=== PATIENT | female | born 1995 | race Caucasian/White ===

== ENCOUNTER 2017-03-20 10:35 | Emergency (ER) | payer BC ==
[2017-03-20 11:22] VITALS: BP 115/67
[2017-03-20 11:36] LABS: CHLORIDE,CL 108 mmol/L (98-110); SODIUM,NA 137 mmol/L (136-146)
--- NOTE | 2017-03-20 12:02 | EDM.PDOC ---
ED HPI GENERAL MEDICAL PROBLEM - General Chief Complaint: ENT Problem Stated Complaint: nose bleed Time Seen by Provider: 03/20/17 11:58 Source of Information: Reports: Patient - History of Present Illness INITIAL COMMENTS - FREE TEXT/NARRATIVE: HISTORY AND PHYSICAL: History of present illness: Patient is 15 weeks with IUP presents with epistaxis that began shortly prior to arrival, she is quite emotional and worked up due to the bloody nose, right and there clearly was bleeding other however there is no active bleed on arrival there is copious blood in the nares itself on arrival, the patient states she swallowed a large clot which concerned her. Again she is very tearful and emotional her blood pressure is elevated 180/113 on arrival, after reassurance and placing a cold pack on her neck with some time blood pressure did come down to 115/67 on recheck after approximately 30 minutes patient is much more calm bleeding has resolved no specific treatment required No fever nausea vomiting chills sweats no chest pain shortness breath headache dizziness palpitation no bowel or urine symptoms No vaginal symptoms such as bleeding discharge or dysuria no low back pain Review of systems: As per history of present illness and below otherwise all systems reviewed and negative. Past medical history: As per history of present illness and as reviewed below otherwise noncontributory. Surgical history: As per history of present illness and as reviewed below otherwise noncontributory. Social history: No reported history of drug or alcohol abuse. Family history: As per history of present illness and as reviewed below otherwise noncontributory. Physical exam: HEENT: Atraumatic, normocephalic, pupils reactive, negative for conjunctival pallor or scleral icterus, mucous membranes moist, throat clear, neck supple, nontender, trachea midline. Right near did had copious blood the bleeding seemed to originate very anterior consistent with picking nose however nothing for cauterization at this time no active bleeding no blood in posterior oropharynx, no clots appreciated nares are clear at this time on discharge with no continued bleeding Lungs: Clear to auscultation, breath sounds equal bilaterally, chest nontender. Heart: S1S2, regular, negative for clicks, rubs, or JVD. Abdomen: Soft, nondistended, nontender. Negative for masses or hepatosplenomegaly. Negative for costovertebral tenderness. Pelvis: Stable nontender. Genitourinary: Deferred. Rectal: Deferred. Extremities: Atraumatic, negative for cords or calf pain. Neurovascular unremarkable. Neuro: Awake, alert, oriented. Cranial nerves II through XII unremarkable. Cerebellum unremarkable. Motor and sensory unremarkable throughout. Exam nonfocal. Diagnostics: []Lab as below CBC, CMP, UA Therapeutics: []Ice pack Impression: []Epistaxis resolved Definitive disposition and diagnosis as appropriate pending reevaluation and review of above. headache Pain Score (Numeric/FACES): 5 - Related Data Allergies Allergy/AdvReac Type Severity Reaction Status Date / Time No Known Allergies Allergy Verified 09/16/15 12:15 Home Meds: Home Meds . [No Known Home Meds] 12/09/14 [History] Past Medical History - Past Health History Medical/Surgical History: Denies Medical/Surgical History - Infectious Disease History Infectious Disease History: Reports: None Social & Family History - Family History Family Medical History: Noncontributory - Tobacco Use Smoking Status *Q: Current Every Day Smoker Years of Tobacco use: 9 Packs/Tins Daily: 0.5 Used Tobacco, but Quit: No Second Hand Smoke Exposure: No - Alcohol Use Days Per Week of Alcohol Use: 1 Number of Drinks Per Day: 6 Total Drinks Per Week: 6 - Recreational Drug Use Recreational Drug Use: No Drug Use in Last 12 Months: No Recreational Drug Type: Reports: Cocaine, Marijuana/Hashish, Oxycodone Recreational Drug Use Frequency: Not Used In Over 1 Year ED ROS GENERAL - Review of Systems Review Of Systems: ROS reveals no pertinent complaints other than HPI. ED EXAM, GENERAL - Physical Exam Exam: See Below Course - Vital Signs Last Recorded V/S: Last Vital Signs Temp 36.8 C 03/20/17 11:21 Pulse 97 03/20/17 11:21 Resp 16 03/20/17 11:21 BP 115/67 03/20/17 11:21 Pulse Ox 95 03/20/17 11:21 - Orders/Labs/Meds Orders: Active Orders 24 hr Category Date Time Status UA W/MICROSCOPIC [URIN] Stat Lab 03/20/17 11:40 Results Labs: Laboratory Tests 03/20/17 03/20/17 03/20/17 Range/Units 11:02 11:02 11:02 WBC 13.02 H (4.0-11.0) K/uL RBC 4.66 (4.30-5.90) M/uL Hgb 14.3 (12.0-16.0) g/dL Hct 41.7 (36.0-46.0) % MCV 89.5 (80.0-98.0) fL MCH 30.7 (27.0-32.0) pg MCHC 34.3 (31.0-37.0) g/dL RDW Std Deviation 45.8 (28.0-62.0) fl RDW Coeff of Joshua 14 (11.0-15.0) % Plt Count 217 (150-400) K/uL MPV 10.80 (7.40-12.00) fL Neut % (Auto) 80.5 H (48.0-80.0) % Lymph % (Auto) 13.1 L (16.0-40.0) % [place] % (Auto) 5.5 (0.0-15.0) % Eos % (Auto) 0.7 (0.0-7.0) % Baso % (Auto) 0.2 (0.0-1.5) % Neut # (Auto) 10.5 H (1.4-5.7) K/uL Lymph # (Auto) 1.7 (0.6-2.4) K/uL [place] # (Auto) 0.7 (0.0-0.8) K/uL Eos # (Auto) 0.1 (0.0-0.7) K/uL Baso # (Auto) 0.0 (0.0-0.1) K/uL Nucleated RBC % 0.0 /100WBC Nucleated RBCs # 0 K/uL INR 1.01 (0.86-1.11) Sodium 137 (136-146) mmol/L Potassium 3.6 (3.5-5.1) mmol/L Chloride 108 (98-110) mmol/L Carbon Dioxide 18 L (21-31) mmol/L BUN 8 (6.0-23.0) mg/dL Creatinine 0.6 (0.6-1.5) mg/dL Est Cr Clr Drug Dosing 125.92 mL/min Estimated GFR (MDRD) > 60.0 ml/min Glucose 90 (60-110) mg/dL Calcium 8.8 (8.8-10.8) mg/dL Total Bilirubin 0.3 (0.1-1.5) mg/dL AST 11 (5-40) IU/L ALT 12 (8-54) IU/L Alkaline Phosphatase 64 (40-150) Total Protein 6.6 (6.0-8.0) g/dL Albumin 3.5 (3.5-5.0) g/dL Globulin 3.1 (2.0-3.5) g/dL Albumin/Globulin Ratio 1.1 L (1.3-2.8) Urine Color Urine Appearance Urine pH (5.0-8.0) Ur Specific [place] (1.001-1.035) Urine Protein (NEGATIVE) mg/dL Urine Glucose (UA) (NEGATIVE) mg/dL Urine Ketones (NEGATIVE) mg/dL Urine Occult Blood (NEGATIVE) Urine Nitrite (NEGATIVE) Urine Bilirubin (NEGATIVE) Urine Urobilinogen (<2.0) EU/dL Ur Leukocyte Esterase (NEGATIVE) 03/20/17 Range/Units 11:40 WBC (4.0-11.0) K/uL RBC (4.30-5.90) M/uL Hgb (12.0-16.0) g/dL Hct (36.0-46.0) % MCV (80.0-98.0) fL MCH (27.0-32.0) pg MCHC (31.0-37.0) g/dL RDW Std Deviation (28.0-62.0) fl RDW Coeff of Joshua (11.0-15.0) % Plt Count (150-400) K/uL MPV (7.40-12.00) fL Neut % (Auto) (48.0-80.0) % Lymph % (Auto) (16.0-40.0) % [place] % (Auto) (0.0-15.0) % Eos % (Auto) (0.0-7.0) % Baso % (Auto) (0.0-1.5) % Neut # (Auto) (1.4-5.7) K/uL Lymph # (Auto) (0.6-2.4) K/uL [place] # (Auto) (0.0-0.8) K/uL Eos # (Auto) (0.0-0.7) K/uL Baso # (Auto) (0.0-0.1) K/uL Nucleated RBC % /100WBC Nucleated RBCs # K/uL INR (0.86-1.11) Sodium (136-146) mmol/L Potassium (3.5-5.1) mmol/L Chloride (98-110) mmol/L Carbon Dioxide (21-31) mmol/L BUN (6.0-23.0) mg/dL Creatinine (0.6-1.5) mg/dL Est Cr Clr Drug Dosing mL/min Estimated GFR (MDRD) ml/min Glucose (60-110) mg/dL Calcium (8.8-10.8) mg/dL Total Bilirubin (0.1-1.5) mg/dL AST (5-40) IU/L ALT (8-54) IU/L Alkaline Phosphatase (40-150) Total Protein (6.0-8.0) g/dL Albumin (3.5-5.0) g/dL Globulin (2.0-3.5) g/dL Albumin/Globulin Ratio (1.3-2.8) Urine Color YELLOW Urine Appearance CLOUDY Urine pH 6.0 (5.0-8.0) Ur Specific [place] 1.025 (1.001-1.035) Urine Protein 30 (NEGATIVE) mg/dL Urine Glucose (UA) NEGATIVE (NEGATIVE) mg/dL Urine Ketones TRACE H (NEGATIVE) mg/dL Urine Occult Blood TRACE-INTACT (NEGATIVE) Urine Nitrite NEGATIVE (NEGATIVE) Urine Bilirubin SMALL H (NEGATIVE) Urine Urobilinogen 0.2 (<2.0) EU/dL Ur Leukocyte Esterase NEGATIVE (NEGATIVE) Departure - Departure Time of Disposition: 12:02 Disposition: Home, Self-Care 01 Condition: Good Clinical Impression: Epistaxis - Discharge Information Forms: ED Department Discharge Additional Instructions: Return if symptoms persist or worsen or new concerning symptoms develop Epistaxis returns pinched nose tilted forward place ice pack on back of neck if bleeding does not resolve after 30 minutes return to emergency room Follow-up with OB as scheduled The following information is given to patients seen in the emergency department who are being discharged to home. This information is to outline your options for follow-up care. We provide all patients seen in our emergency department with a follow-up referral. The need for follow-up, as well as the timing and circumstances, are variable depending upon the specifics of your emergency department visit. If you don't have a primary care physician on staff, we will provide you with a referral. We always advise you to contact your personal physician following an emergency department visit to inform them of the circumstance of the visit and for follow-up with them and/or the need for any referrals to a consulting specialist. The emergency department will also refer you to a specialist when appropriate. This referral assures that you have the opportunity for follow-up care with a specialist. All of these measure are taken in an effort to provide you with optimal care, which includes your follow-up. Under all circumstances we always encourage you to contact your private physician who remains a resource for coordinating your care. When calling for follow-up care, please make the office aware that this follow-up is from your recent emergency room visit. If for any reason you are refused follow-up, please contact the [facility] emergency department at and asked to speak to the emergency department charge nurse. - My Orders Last 24 Hours: My Active Orders 03/20/17 11:40 UA W/MICROSCOPIC [URIN] Stat - Assessment/Plan Last 24 Hours: My Active Orders 03/20/17 11:40 UA W/MICROSCOPIC [URIN] Stat
== END 2017-03-20 12:12 | disposition home or self-care (01) ==
LOC: MW.ED 10:35
DX: R04.0 Epistaxis (principal); F17.210 Nicotine dependence, cigarettes, uncomplicated
CPT/HCPCS: 36415; 80053; 81001; 85025; 85610; 99282; 99283

== ENCOUNTER 2017-09-03 08:20 | Inpatient (IN) | payer BC ==
[2017-09-03] MEDS ORDERED: Terbutaline 1 MG/ML SDV SUBCUT PRN (11:58)
[2017-09-03] MEDS ORDERED: Carboprost Tromethamine 250 MCG/1 ML Amp IM PRN (11:58)
[2017-09-03] MEDS ORDERED: Methylergonovine 0.2 MG/1 ML Amp IM PRN (11:58)
[2017-09-03] MEDS ORDERED: Lidocaine 1% 50 ML MDV INJECT PRN (11:58)
[2017-09-03] MEDS ORDERED: Sodium Chloride 0.9% 2.5 ML Syringe FLUSH PRN (11:58)
[2017-09-03] MEDS ORDERED: Misoprostol 200 MCG Tab PO PRN (11:58)
[2017-09-03] MEDS ORDERED: Sodium Chloride 0.9% 10 ML Syringe FLUSH PRN (11:58)
[2017-09-03] MEDS ORDERED: Nalbuphine 10 MG/1 ML Vial IVPUSH PRN (11:58)
[2017-09-03] MEDS ORDERED: Butorphanol 1 MG/ML SDV IVPUSH PRN (11:58)
[2017-09-03] MEDS ORDERED: Water For Irrigation,Sterile 1,000 ML Container IRR PRN (11:58)
[2017-09-03] MEDS ORDERED: Lactated Ringers 1,000 ML IV SCH (12:00)
[2017-09-03] MEDS ORDERED: Oxytocin/0.9 % Sodium Chloride 30 UNIT/500 ML BAG IV SCH ×2 (12:00)
--- NOTE | 2017-09-03 12:04 | PCM.LDHP ---
L&D History of Present Illness - General Date of Service: 09/03/17 Admit Problem/Dx: Patient Status Order with Admit Dx/Problem 09/03/17 08:41 Patient Status [ADT] Routine Admission Diagnosis/Problem Admission Diagnosis/Problem 09/03/17 12:01 21yo EDC 09/12/2017 38 5/7wk, O-, RI, GBS neg. Labor Source of Information: Patient History Limitations: Reports: No Limitations - History of Present Illness Improves with: Reports: None Worsens with: Reports: None Associated Symptoms: Reports: N - Related Data Allergies/Adverse Reactions: Allergies Allergy/AdvReac Type Severity Reaction Status Date / Time No Known Allergies Allergy Verified 09/16/15 12:15 Home Medications: Home Meds . [No Known Home Meds] 12/09/14 [History] Past Medical History - Past Health History Medical/Surgical History: Denies Medical/Surgical History - Infectious Disease History Infectious Disease History: Reports: None Social & Family History - Family History Family Medical History: Noncontributory - Tobacco Use Smoking Status *Q: Current Every Day Smoker Years of Tobacco use: 9 Packs/Tins Daily: 0.5 Used Tobacco, but Quit: No Second Hand Smoke Exposure: No - Alcohol Use Days Per Week of Alcohol Use: 1 Number of Drinks Per Day: 6 Total Drinks Per Week: 6 - Recreational Drug Use Recreational Drug Use: No Drug Use in Last 12 Months: No Recreational Drug Type: Reports: Cocaine, Marijuana/Hashish, Oxycodone Recreational Drug Use Frequency: Not Used In Over 1 Year H&P Review of Systems - Review of Systems: Review Of Systems: See Below General: Reports: No Symptoms HEENT: Reports: No Symptoms Pulmonary: Reports: No Symptoms Cardiovascular: Reports: No Symptoms Gastrointestinal: Reports: No Symptoms Genitourinary: Reports: No Symptoms Musculoskeletal: Reports: No Symptoms Skin: Reports: No Symptoms Psychiatric: Reports: No Symptoms Neurological: Reports: No Symptoms Hematologic/Lymphatic: Reports: No Symptoms Immunologic: Reports: No Symptoms L&D Exam - Exam Exam: See Below - Vital Signs Weight: 98.883 kg - OB Specific Contraction Intensity: Moderate Movement: Active Heart Tones: Present Heart Rate (FHR) Variability: Moderate (6-25 bmp) Presentation: Vertex - Mcgee Score Mcgee Score Cervix Position: Midposition Mcgee Score Consistency: Soft Mcgee Score Effacement: >80% Mcgee Score Dilation: 3-4 cm Mcgee Score 's Station: -2 Mcgee Score Total: 9 - Exam General: Alert, Oriented, Cooperative HEENT: Hearing Intact Lungs: Normal Respiratory Effort GI/Abdominal Exam: Soft, Non-Tender, No Organomegaly (gravid) Rectal Exam: Deferred Genitourinary: Normal external exam, Normal bimanual exam, Cervical dilitation Back Exam: Full Range of Motion Extremities: Normal Range of Motion, Non-Tender, No Pedal Edema, Normal Capillary Refill Skin: Warm, Dry, Intact Neurological: Reflexes Equal Bilateral Psychiatric: Alert, Normal Affect, Normal Mood - Problem List (1) Supervision of normal IUP (intrauterine ) in multigravida SNOMED Code(s): 269300462, 100199042 ICD Code: Z34.80 - ENCOUNTER FOR SUPRVSN OF NORMAL , UNSP TRIMESTER Status: Acute Priority: High Current Visit: Yes Qualifiers: Trimester: third trimester Qualified Code(s): Z34.83 - Encounter for supervision of other normal , third trimester Problem List Initiated/Reviewed/Updated: Yes Orders Last 24hrs: Active Orders 24 hr Category Date Time Status Patient Status [ADT] Routine ADT 09/03/17 08:41 Active Non Stress Test [RC] PER UNIT ROUTINE Care 09/03/17 08:41 Active Up ad Kiki [RC] ASDIRECTED Care 09/03/17 08:41 Active Vaginal Exam [RC] Click to Edit Care 09/03/17 08:41 Active Vital Signs [RC] PER UNIT ROUTINE Care 09/03/17 08:41 Active Resuscitation Status Routine Resus Stat 09/03/17 08:41 Ordered Assessment/Plan Comment:: Labor A: 21yo EDC 09/12/2017 38 5/7wk, O-, RI, GBS neg. Labor P: Admit, pain mngt prn, anticipate
[2017-09-03] MEDS ORDERED: Ampicillin 2 GM in Sodium Chloride 0.9% 100 ML IV ONE (19:00)
[2017-09-03] MEDS ORDERED: Benzocaine/Menthol 20%-0.5% Spray 78 GM Cannister TOP PRN (21:40)
[2017-09-03] MEDS ORDERED: oxyCODONE 5 MG Tab PO PRN (21:40)
[2017-09-03] MEDS ORDERED: Lanolin 100% Cream 7 GM Tube TOP PRN (21:40)
[2017-09-03] MEDS ORDERED: Witch Hazel Medicated Pads 40/Jar TOP PRN (21:40)
[2017-09-03] MEDS ORDERED: Ibuprofen 400 MG Tab PO PRN (21:40)
[2017-09-03] MEDS ORDERED: Acetaminophen 500 MG Tab PO PRN ×2 (21:40)
[2017-09-03] MEDS ORDERED: Docusate Sodium 100 MG Cap PO PRN (21:40)
[2017-09-03] MEDS ORDERED: Bisacodyl 10 MG Supp RECTAL PRN (21:40)
[2017-09-03] MEDS: Ampicillin 1 GM in Sodium Chloride 0.9% 50 ML IV SCH (23:29)
[2017-09-03] MEDS: Ibuprofen 800 MG Tab PO PRN (23:29)
--- NOTE | 2017-09-04 02:50 | OR ---
SURGEON: Iam Rojas MD DATE OF PROCEDURE: PROCEDURE IN DETAIL: She is 21 years old. She is para 3-0-0-3. She is term. She is 39+ weeks. She is admitted in active labor with spontaneous rupture of membrane early today. Clear fluid that was confirmed. At the time of admission, she was dilated 3 to 4 cm. She had epidural anesthesia for labor analgesia. She required low-dose Pitocin to augment her labor. The patient once she hit 6 to 7 cm, she rather progressed rapidly and she had a precipitous labor attended by the labor nurses. Male fetus was delivered. score 8 and 9 without any problem. By the time I came, the fetus was already out. Then, the cord blood was obtained and the placenta is delivered by me without any problem. Inspection of the pelvis, there was no perineal or labial laceration. ESTIMATED BLOOD LOSS: 250 to 300 mL. COMPLICATIONS: There was no complication. FINDINGS: heart rate was category 1 through the entire process of labor. There is no complication or problem through the process of labor and delivery. JAAVD / PADMINI /[id number]
[2017-09-04] MEDS: Ampicillin 1 GM in Sodium Chloride 0.9% 50 ML IV SCH ×3 (04:31→19:05)
--- NOTE | 2017-09-04 09:06 | PCM.PNPP ---
- General Info Date of Service: 09/04/17 Functional Status: Reports: Pain Controlled - Review of Systems General: Reports: No Symptoms HEENT: Reports: No Symptoms Pulmonary: Reports: No Symptoms Cardiovascular: Reports: No Symptoms Gastrointestinal: Reports: No Symptoms Genitourinary: Reports: No Symptoms Musculoskeletal: Reports: No Symptoms Skin: Reports: No Symptoms Neurological: Reports: No Symptoms Psychiatric: Reports: No Symptoms - General Info Date of Service: 09/04/17 - Patient Data Vital Signs - Most Recent: Last Vital Signs Temp 37.1 C 09/04/17 07:45 Pulse 84 09/04/17 07:45 Resp 16 09/04/17 07:45 BP 112/63 09/04/17 07:45 Pulse Ox 97 09/04/17 07:45 Weight - Most Recent: 98.883 kg Lab Results - Last 24 Hours: Laboratory Results - last 24 hr 09/03/17 09/03/17 09/04/17 Range/Units 12:15 12:15 04:07 WBC 10.40 (4.0-11.0) K/uL RBC 3.94 L (4.30-5.90) M/uL Hgb 11.8 L 11.2 L (12.0-16.0) g/dL Hct 35.1 L 33.7 L (36.0-46.0) % MCV 89.1 (80.0-98.0) fL MCH 29.9 (27.0-32.0) pg MCHC 33.6 (31.0-37.0) g/dL RDW Std Deviation 48.0 (28.0-62.0) fl RDW Coeff of Joshua 15 (11.0-15.0) % Plt Count 204 (150-400) K/uL MPV 10.20 (7.40-12.00) fL Nucleated RBC % 0.0 /100WBC Nucleated RBCs # 0 K/uL Blood Type O NEGATIVE Antibody Screen NEGATIVE Med Orders - Current: Current Medications Acetaminophen (Tylenol Extra Strength) 500 mg PO Q4H PRN PRN Reason: Pain Acetaminophen (Tylenol Extra Strength) 1,000 mg PO Q4H PRN PRN Reason: Pain Last Admin: 09/04/17 04:42 Dose: 1,000 mg Benzocaine/Menthol (Dermoplast Pain Relief 20%-0.5% [place]) 0 gm TOP ASDIRECTED PRN PRN Reason: Perineal Comfort Measure Bisacodyl (Dulcolax) 10 mg RECTAL .ONCE PRN PRN Reason: Constipation Butorphanol Tartrate (Stadol) 1 mg IVPUSH Q1H PRN PRN Reason: Pain Last Admin: 09/03/17 20:30 Dose: 1 mg Carboprost Tromethamine (Hemabate Ds) 250 mcg IM ASDIRECTED PRN PRN Reason: Post Hemorrhage Docusate Sodium (Colace) 100 mg PO BID PRN PRN Reason: Constipation Emollient Ointment (Lansinoh Hpa) 0 gm TOP ASDIRECTED PRN PRN Reason: Sore Nipples Lactated Ringer's (Ringers, Lactated) 1,000 mls @ 150 mls/hr IV ASDIRECTED ALFREDITO Oxytocin/Sodium Chloride (Oxytocin 30 Unit/500 Ml-Ns) 30 unit in 500 mls @ 999 mls/hr IV ASDIRECTED ALFREDITO Oxytocin/Sodium Chloride (Oxytocin 30 Unit/500 Ml-Ns) 30 unit in 500 mls @ 2 mls/hr IV TITRATE ALFREDITO; 2 MUNITS/MIN PRN Reason: Protocol Last Titration: 09/03/17 21:29 Dose: 999 mls/hr Ampicillin Sodium 1 gm/ Sodium (Chloride) 50 mls @ 100 mls/hr IV Q4H ALFREDITO Last Admin: 09/04/17 07:07 Dose: Not Given Ibuprofen (Motrin) 400 mg PO Q4H PRN PRN Reason: Pain Ibuprofen (Motrin) 800 mg PO Q6H PRN PRN Reason: Pain Last Admin: 09/03/17 23:29 Dose: 800 mg Lidocaine HCl (Xylocaine 1%) 50 ml INJECT .ONCE PRN PRN Reason: Laceration repair Methylergonovine Maleate (Methergine) 0.2 mg IM ASDIRECTED PRN PRN Reason: Post Hemorrhage Misoprostol (Cytotec) 200 mcg PO .ONCE PRN PRN Reason: Post Hemorrhage Nalbuphine HCl (Nubain) 10 mg IVPUSH Q1H PRN PRN Reason: Pain (severe 7-10) Oxycodone HCl (Oxycodone) 5 mg PO Q2H PRN PRN Reason: Pain Sodium Chloride (Saline Flush) 10 ml FLUSH ASDIRECTED PRN PRN Reason: Keep Vein Open Sodium Chloride (Saline Flush) 2.5 ml FLUSH ASDIRECTED PRN PRN Reason: Keep Vein Open Sterile Water (Sterile Water For Irrigation) 1,000 ml IRR ASDIRECTED PRN PRN Reason: delivery Terbutaline Sulfate (Brethine) 0.25 mg SUBCUT ASDIRECTED PRN PRN Reason: Tacysystole [place] Christen (Tucks) 1 pad TOP ASDIRECTED PRN PRN Reason: comfort care Discontinued Medications Ampicillin Sodium 2 gm/ Sodium (Chloride) 100 mls @ 200 mls/hr IV ONETIME ONE Stop: 09/03/17 19:29 Last Admin: 09/03/17 18:35 Dose: 200 mls/hr - Infant Interaction Infant Disposition, : in Room with Family Interaction: Holding Infant Infant Feeding: Attempted ; Nursed Fair/Poor Support Person: - Recovery Exam Fundal Tone: Firm Fundal Level: At Umbilicus Fundal Placement: Midline Lochia Amount: Scant, Small Lochia Color: Rubra/Red Perineum Description: Intact, Minimal Bruising/Swelling Episiotomy/Laceration: None Bladder Status: Voiding - Exam General: Alert, Oriented HEENT: Pupils Equal Neck: Supple Lungs: Clear to Auscultation, Normal Respiratory Effort Cardiovascular: Regular Rate, Regular Rhythm GI/Abdominal Exam: Normal Bowel Sounds, Soft, Non-Tender, No Organomegaly, No Distention, No Abnormal Bruit, No Mass, Pelvis Stable Extremities: Normal Inspection, Normal Range of Motion, Non-Tender, No Pedal Edema, Normal Capillary Refill Skin: Warm, Dry, Intact Wound/Incisions: Healing Well Neurological: No New Focal Deficit Psy/Mental Status: Alert, Normal Affect, Normal Mood - Problem List Review Problem List Initiated/Reviewed/Updated: Yes - My Orders Last 24 Hours: My Active Orders 09/03/17 11:58 Butorphanol [Stadol] 1 mg IVPUSH Q1H PRN Carboprost Tromethamine [Hemabate DS] 250 mcg IM ASDIRECTED PRN Lidocaine 1% [Xylocaine 1%] 50 ml INJECT .ONCE PRN Methylergonovine [Methergine] 0.2 mg IM ASDIRECTED PRN Misoprostol [Cytotec] 200 mcg PO .ONCE PRN Nalbuphine [Nubain] 10 mg IVPUSH Q1H PRN Sodium Chloride 0.9% [Saline Flush] 10 ml FLUSH ASDIRECTED PRN Sodium Chloride 0.9% [Saline Flush] 2.5 ml FLUSH ASDIRECTED PRN Terbutaline [Brethine] 0.25 mg SUBCUT ASDIRECTED PRN Water For Irrigation,Sterile [Sterile Water for Irrigation] 1,000 ml IRR ASDIRECTED PRN Resuscitation Status Routine 09/03/17 11:59 May Shower [RC] ASDIRECTED Up ad Kiki [RC] ASDIRECTED Scalp Electrode [WOMSER] Per Unit Routine Peripheral IV Insertion Adult [OM.PC] Routine 09/03/17 12:00 Lactated Ringers [Ringers, Lactated] 1,000 ml IV ASDIRECTED Oxytocin/0.9 % Sodium Chloride [Oxytocin 30 Unit/500 ML-NS] 30 unit in 500 ml IV ASDIRECTED Oxytocin/0.9 % Sodium Chloride [Oxytocin 30 Unit/500 ML-NS] 30 unit in 500 ml IV TITRATE Medication Administration Instruction [OM.PC] Q3H 09/03/17 21:40 Patient Status [ADT] Routine Vital Signs [RC] PER UNIT ROUTINE Acetaminophen [Tylenol Extra Strength] 1,000 mg PO Q4H PRN Acetaminophen [Tylenol Extra Strength] 500 mg PO Q4H PRN Benzocaine/Menthol [Dermoplast Pain Relief 20%-0.5% [place]] 0 gm TOP ASDIRECTED PRN Bisacodyl [Dulcolax] 10 mg RECTAL .ONCE PRN Docusate Sodium [Colace] 100 mg PO BID PRN Ibuprofen [Motrin] 400 mg PO Q4H PRN Ibuprofen [Motrin] 800 mg PO Q6H PRN Lanolin [Lansinoh HPA] See Dose Instructions TOP ASDIRECTED PRN Witch Christen [Tucks] 1 pad TOP ASDIRECTED PRN oxyCODONE 5 mg PO Q2H PRN Assess Lochia [WOMSER] Per Unit Routine Assess Uterine Involution [WOMSER] Per Unit Routine Peripheral IV Discontinue [OM.PC] Routine 09/03/17 23:00 Ampicillin 1 gm Sodium Chloride 0.9% [Normal Saline] 50 ml IV Q4H - Assessment Assessment:: status post normalspontaneous vaginal delivery doingwell without planning Center home in a.m. - Plan Plan:: Labor A: 21yo EDC 09/12/2017 38 5/7wk, O-, RI, GBS neg. Labor P: Admit, pain mngt prn, anticipate
[2017-09-04] MEDS: Ibuprofen 800 MG Tab PO PRN ×2 (09:26→18:07)
[2017-09-04 20:39] VITALS: BP 134/86
== END 2017-09-04 23:59 | disposition home or self-care (01) | DRG 560 ==
LOC: MW.OBCHECK 08:20 → MW.OB 08:41 → MW.OBCHECK 11:59 → MW.OB 11:59 → OBSVTOIN 21:27 → MW.OB 09-04 01:12
PROVIDERS: ADMIT Obstetrics & Gynecology; ATTEND Advanced Practice Midwife
PROC: 10E0XZZ Delivery of Products of Conception, External Approach (ICD-10-PCS; principal; 2017-09-03)
DX: O42.02 Full-term premature rupture of membranes, onset of labor within 24 hours of rupture (principal); Z3A.39 39 weeks gestation of pregnancy; Z37.0 Single live birth
CPT/HCPCS: 36415; 59025; 59409; 85014; 85018; 85027; 86850; 86900; 86901; A9270-GY; J0290; J0595; J2590; J7030

== ENCOUNTER 2020-04-20 10:05 | Observation (INO) | payer OTHER ==
[2020-04-20] MEDS ORDERED: Lactated Ringers 1,000 ML IV SCH (12:00)
--- NOTE | 2020-04-20 12:12 | PCM.LDHP ---
L&D History of Present Illness - General Date of Service: 04/20/20 Admit Problem/Dx: Patient Status Order with Admit Dx/Problem 04/20/20 10:42 Patient Status [ADT] Routine Admission Diagnosis/Problem Admission Diagnosis/Problem Planned 04/20/20 12:04 Tanisha is a 24 yo at 34.3 weeks (AARON 05/29/2020) that presents today with C/O vaginal spotting, low back pain, abdominal cramping, and increased N/V since 0830 this AM. O neg, RI, GBS unkown. RhoGam administered 03/08/2020. Patient denies C/O LOF, gross heavy vaginal bleeding. Reports ample movement. Pertinent medical history includes: Chronic HTN, Rh neg, Depression with anxiety, LANZA in , history of GDM (not current ), obesity, current smoker 1/2 PPD, UTI this . Current medications include: 60 mg procardia ER daily, 81 mg apsirin daily, 20 mg fluoxentine daily. Baseline labs unremarkable, see laboratory and chemistry history. 32 week growth US CWD, cepahlic, FHR 137, EFW 1926 g (4 lb 4 oz). Patient does not have any other complaints or concerns at this time. 04/20/20 12:13 Source of Information: Patient History Limitations: Reports: No Limitations - History of Present Illness Associated Symptoms: Reports: vaginal bleeding - Related Data Allergies/Adverse Reactions: Allergies Allergy/AdvReac Type Severity Reaction Status Date / Time No Known Allergies Allergy Verified 04/20/20 10:39 Home Medications: Home Meds Aspirin 81 mg PO DAILY 04/20/20 [History] FLUoxetine HCl [Fluoxetine] 1 tab PO DAILY 04/20/20 [History] NIFEdipine [Nifedipine ER] 60 mg PO DAILY 04/20/20 [History] Pnv No.95/Ferrous Fum/Folic AC [ Vitamin Tablet] 1 tab PO DAILY 04/20/20 [History] Past Medical History - Past Health History Medical/Surgical History: Denies Medical/Surgical History HEENT History: Reports: None Cardiovascular History: Reports: Hypertension Respiratory History: Reports: None Gastrointestinal History: Reports: None Genitourinary History: Reports: UTI, Recurrent 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: Musculoskeletal History: Reports: None Neurological History: Reports: None Psychiatric History: Reports: Anxiety, Depression Endocrine/Metabolic History: Reports: Obesity/BMI 30+ Hematologic History: Reports: None Immunologic History: Reports: None Dermatologic History: Reports: None - Infectious Disease History Infectious Disease History: Reports: None - Past Surgical History Head Surgeries/Procedures: Reports: None Social & Family History - Family History Family Medical History: Noncontributory - Tobacco Use Smoking Status *Q: Current Every Day Smoker Tobacco Use Within Last Twelve Months: Cigarettes Packs/Tins Daily: 0.5 - Caffeine Use Caffeine Use: Reports: Coffee, Soda - Alcohol Use Alcohol Use History: No - Recreational Drug Use Recreational Drug Use: No H&P Review of Systems - Review of Systems: Review Of Systems: Comprehensive ROS is negative, except as noted in HPI. General: Reports: No Symptoms HEENT: Reports: No Symptoms Pulmonary: Reports: No Symptoms Cardiovascular: Reports: No Symptoms Gastrointestinal: Reports: No Symptoms Genitourinary: Reports: No Symptoms Musculoskeletal: Reports: No Symptoms Skin: Reports: No Symptoms Psychiatric: Reports: No Symptoms Neurological: Reports: No Symptoms Hematologic/Lymphatic: Reports: No Symptoms Immunologic: Reports: No Symptoms L&D Exam - Exam Exam: See Below - Vital Signs Vital Signs: T 98.2. BP 127/86 (95). HR 78. RR 18. Weight: 214 lb - OB Specific Fundal Height In cm: 35 Contraction Duration (sec): Occasional Contraction Frequency (min): 40-60 Contraction Intensity: Irritability Movement: Active Heart Tones: Present Heart Tones per Min: 130 Heart Rate (FHR) Variability: Moderate (6-25 bmp) Presentation: Vertex Estimated Weight: 4-5 lbs - Exam General: Alert, Oriented, Cooperative HEENT: Conjunctiva Clear, Hearing Intact, Mucosa Moist & [place], Pupils Equal, PERRLA Neck: Supple, Trachea Midline Lungs: Clear to Auscultation, Normal Respiratory Effort, Other (Diminished BLL) Cardiovascular: Regular Rate, Regular Rhythm GI/Abdominal Exam: Normal Bowel Sounds, Soft, Non-Tender, No Organomegaly, No Distention Rectal Exam: Deferred Genitourinary: Normal external exam, Normal bimanual exam (SVE C/T/H, moderate, posterior. Funneling noted to external os.), Enlarged uterus (Gravid uterus, soft upon palpation), Vaginal bleeding (Scant, pink discharge) Back Exam: Normal Inspection, Full Range of Motion Extremities: Normal Inspection, Normal Range of Motion, Non-Tender, No Pedal Edema, Normal Capillary Refill Skin: Warm, Dry, Intact Neurological: Cranial Nerves Intact Psychiatric: Alert, Normal Affect, Normal Mood - Problem List (1) uterine contractions in third trimester, antepartum SNOMED Code(s): 183783414, 206276096 ICD Code: O47.03 - FALSE LABOR BEFORE 37 COMPLETED WEEKS OF GEST, THIRD TRI Status: Acute Priority: High Current Visit: Yes (2) Chronic hypertension affecting SNOMED Code(s): 79305019 ICD Code: O10.919 - UNSP PRE-EXISTING HTN COMP , UNSP TRIMESTER Status: Acute Priority: High Current Visit: Yes (3) 34 weeks gestation of SNOMED Code(s): 58034270 ICD Code: Z3A.34 - 34 WEEKS GESTATION OF Status: Acute Priority: High Current Visit: Yes Problem List Initiated/Reviewed/Updated: Yes Orders Last 24hrs: Active Orders 24 hr Category Date Time Status Patient Status [ADT] Routine ADT 04/20/20 10:42 Active Non Stress Test [RC] PER UNIT ROUTINE Care 04/20/20 10:42 Active Up ad Kiki [RC] ASDIRECTED Care 04/20/20 10:42 Active Vaginal Exam [RC] Click to Edit Care 04/20/20 10:42 Active Vital Signs [RC] PER UNIT ROUTINE Care 04/20/20 10:42 Active OB Ltd 1 or More Fetus [US] Routine Exams 04/20/20 12:01 Ordered OB Transvaginal [US] Urgent Exams 04/20/20 11:55 Ordered CBC WITH AUTO DIFF [HEME] Routine Lab 04/20/20 11:49 Ordered COMPREHENSIVE METABOLIC PN,CMP [CHEM] Routine Lab 04/20/20 11:49 Ordered CORONAVIRUS COVID-19 PCR PHL Urgent Lab 04/20/20 11:57 Ordered PROTEIN/CREATININE RATIO,URINE [URCHEM] Routine Lab 04/20/20 11:55 Ordered UA W/O MICROSCOPIC [URIN] Routine Lab 04/20/20 10:42 Ordered Lactated Ringers [Ringers, Lactated] 1,000 ml Med 04/20/20 12:00 Active IV ASDIRECTED Resuscitation Status Routine Resus Stat 04/20/20 10:42 Ordered Medication Orders Lactated Ringer's (Ringers, Lactated) 1,000 mls @ 999 mls/hr IV ASDIRECTED ALFREDITO Assessment/Plan Comment:: FHR cat I. Occasional uterine contractions, uterine irritability noted. Continue to monitor continuously. SVE C/T/H, moderate, posterior, external os funneling noted. TVUS/TAUS ordered to R/O labor and placental abruption respectively. CBC, CMP, UA with reflex, random urine protein/creatinine/PC ratio, COVID, GBS ordered. Start 1000 ml bolus IV now. Dr. Rojas notified and agreeable with POC.
--- NOTE | 2020-04-20 13:21 | US ---
Limited obstetrical ultrasound: Multiple real-time images were obtained transabdominally. Comparison: Previous obstetrical ultrasounds are available for current , most recent exam is 04/04/20. presentation: Cephalic Placenta: Anterior with no findings of placenta previa or abruption Amniotic fluid: HOMER 15.5 cm Cervix: Closed with length of 3.7 cm. Impression: 1. Single intrauterine fetus currently cephalic in presentation. 2. Normal findings as noted above. Diagnostic code #1 This report was dictated in MDT
[2020-04-20] MEDS ORDERED: Phenazopyridine 200 MG Tab PO PRN (13:45)
[2020-04-20] MEDS ORDERED: Cephalexin 500 MG Cap PO SCH (14:00)
--- NOTE | 2020-04-20 14:10 | US ---
EXAM DATE: 04/20/20 PATIENT'S AGE: 24 Limited obstetrical ultrasound: Multiple real-time images were obtained transabdominally. Comparison: Previous obstetrical ultrasounds are available for current , most recent exam is 04/04/20. presentation: Cephalic Placenta: Anterior with no findings of placenta previa or abruption Amniotic fluid: HOMER 15.5 cm Cervix: Closed with length of 3.7 cm. Impression: 1. Single intrauterine fetus currently cephalic in presentation. 2. Normal findings as noted above. Diagnostic code #1 This report was dictated in MDT Report Signed by Proxy. JUAN
--- NOTE | 2020-04-20 14:38 | PCM.DCSUM1 ---
Discharge Summary - Hospital Course Free Text/Narrative:: Tanisha is a 24 yo at 34.3 weeks (AARON 05/29/2020) that presents today with C/O vaginal spotting, low back pain, abdominal cramping, and increased N/V since 0830 this AM. O neg, RI, GBS unkown. RhoGam administered 03/08/2020. Received 1000 ml LR IV bolus. CBC, UA consistent with complicated UTI. Covid negative. CMP unremarkable, persistent urine protein consistent with chronic HTN and light vaginal bleeding. FHR cat I. Uterine irritability noted. TAUS unremarkable, no previa or placental abruption noted. TVUS CL 3.6 cm, closed. Keflex 500 mg q 6 hours x 7 days ordered. UTI symptom relief antiseptic administered. May be discharged home now. Dr. Rojas notified and agreeable with POC. Diagnosis: Stroke: No - Discharge Data Discharge Date: 04/20/20 Discharge Disposition: Home, Self-Care 01 Condition: Good - Referral to Home Health Primary Care Physician: Grace Hull CNM - Discharge Diagnosis/Problem(s) (1) Complicated UTI (urinary tract infection) SNOMED Code(s): 69348979 ICD Code: N39.0 - URINARY TRACT INFECTION, SITE NOT SPECIFIED Status: Acute Priority: High Current Visit: Yes (2) uterine contractions in third trimester, antepartum SNOMED Code(s): 309728852, 983936416 ICD Code: O47.03 - FALSE LABOR BEFORE 37 COMPLETED WEEKS OF GEST, THIRD TRI Status: Acute Priority: High Current Visit: Yes (3) Chronic hypertension affecting SNOMED Code(s): 19155377 ICD Code: O10.919 - UNSP PRE-EXISTING HTN COMP , UNSP TRIMESTER Status: Acute Priority: High Current Visit: Yes (4) 34 weeks gestation of SNOMED Code(s): 97341236 ICD Code: Z3A.34 - 34 WEEKS GESTATION OF Status: Acute Priority: High Current Visit: Yes - Patient Instructions Diet: Usual Diet as Tolerated, Regular Diet as Tolerated, Drink 8-10+ Glasses/Day Activity: No Strenuous Activities Driving: May Drive Today Showering/Bathing: May Shower Notify Provider of: Fever, Increased Pain, Swelling and Redness, Drainage, Nausea and/or Vomiting - Discharge Plan *PRESCRIPTION DRUG MONITORING PROGRAM REVIEWED*: No *COPY OF PRESCRIPTION DRUG MONITORING REPORT IN PATIENT REBA: No Home Medications: Home Meds Aspirin 81 mg PO DAILY 04/20/20 [History] FLUoxetine HCl [Fluoxetine] 1 tab PO DAILY 04/20/20 [History] NIFEdipine [Nifedipine ER] 60 mg PO DAILY 04/20/20 [History] Pnv No.95/Ferrous Fum/Folic AC [ Vitamin Tablet] 1 tab PO DAILY 04/20/20 [History] - Discharge Summary/Plan Comment DC Time >30 min.: No (December D/C home now) - General Info Date of Service: 04/20/20 Admission Dx/Problem (Free Text: Patient Status Order with Admit Dx/Problem 04/20/20 10:42 Patient Status [ADT] Routine Admission Diagnosis/Problem Admission Diagnosis/Problem Planned 04/20/20 12:04 Tanisha is a 24 yo at 34.3 weeks (AARON 05/29/2020) that presents today with C/O vaginal spotting, low back pain, abdominal cramping, and increased N/V since 0830 this AM. O neg, RI, GBS unkown. RhoGam administered 03/08/2020. Patient denies C/O LOF, gross heavy vaginal bleeding. Reports ample movement. Pertinent medical history includes: Chronic HTN, Rh neg, Depression with anxiety, LANZA in , history of GDM (not current ), obesity, current smoker 1/2 PPD, UTI this . Current medications include: 60 mg procardia ER daily, 81 mg apsirin daily, 20 mg fluoxentine daily. Baseline labs unremarkable, see laboratory and chemistry history. 32 week growth US CWD, cepahlic, FHR 137, EFW 1926 g (4 lb 4 oz). Patient does not have any other complaints or concerns at this time. 04/20/20 12:13 Functional Status: Reports: Pain Controlled, Tolerating Diet, Ambulating, Urinating - Review of Systems General: Reports: No Symptoms HEENT: Reports: No Symptoms Pulmonary: Reports: No Symptoms Cardiovascular: Reports: No Symptoms Gastrointestinal: Reports: No Symptoms Genitourinary: Reports: No Symptoms Musculoskeletal: Reports: No Symptoms Skin: Reports: No Symptoms Neurological: Reports: No Symptoms Psychiatric: Reports: No Symptoms - Patient Data Vitals - Most Recent: See flowsheet. Hemodynamically stable, afebrile Weight - Most Recent: 214 lb Lab Results - Last 24 hrs: Laboratory Results - last 24 hr 04/20/20 04/20/20 04/20/20 Range/Units 12:08 12:08 12:18 WBC (4.0-11.0) K/uL RBC (4.30-5.90) M/uL Hgb (12.0-16.0) g/dL Hct (36.0-46.0) % MCV (80.0-98.0) fL MCH (27.0-32.0) pg MCHC (31.0-37.0) g/dL RDW Std Deviation (28.0-62.0) fl RDW Coeff of Joshua (11.0-15.0) % Plt Count (150-400) K/uL MPV (7.40-12.00) fL Neut % (Auto) (48.0-80.0) % Lymph % (Auto) (16.0-40.0) % Brown % (Auto) (0.0-15.0) % Eos % (Auto) (0.0-7.0) % Baso % (Auto) (0.0-1.5) % Neut # (Auto) (1.4-5.7) K/uL Lymph # (Auto) (0.6-2.4) K/uL Brown # (Auto) (0.0-0.8) K/uL Eos # (Auto) (0.0-0.7) K/uL Baso # (Auto) (0.0-0.1) K/uL Nucleated RBC % /100WBC Nucleated RBCs # K/uL Urine Color DARK YELLOW Urine Appearance SLT CLOUDY Urine pH 7.5 (5.0-8.0) Ur Specific Colp 1.015 (1.001-1.035) Urine Protein 100 H (NEGATIVE) mg/dL Urine Glucose (UA) NEGATIVE (NEGATIVE) mg/dL Urine Ketones NEGATIVE (NEGATIVE) mg/dL Urine Occult Blood LARGE H (NEGATIVE) Urine Nitrite POSITIVE H (NEGATIVE) Urine Bilirubin NEGATIVE (NEGATIVE) Urine Urobilinogen 0.2 (<2.0) EU/dL Ur Leukocyte Esterase MODERATE H (NEGATIVE) Urine RBC 30-40 (0-2/HPF) Urine WBC 25-30 (0-5/HPF) Ur Epithelial Cells FEW (NONE-FEW) Urine Bacteria 4+ H (NEGATIVE) Ur Random Creatinine 57.3 mg/dL U Random Total Protein 262.5 H (<11.9) mg/dL Protein/Creatinin Ratio 4.6 COVID-19 ([facility]) NEGATIVE (NEGATIVE) 04/20/20 Range/Units 13:33 WBC 15.62 H (4.0-11.0) K/uL RBC 4.15 L (4.30-5.90) M/uL Hgb 13.0 (12.0-16.0) g/dL Hct 38.4 (36.0-46.0) % MCV 92.5 (80.0-98.0) fL MCH 31.3 (27.0-32.0) pg MCHC 33.9 (31.0-37.0) g/dL RDW Std Deviation 46.3 (28.0-62.0) fl RDW Coeff of Joshua 14 (11.0-15.0) % Plt Count 233 (150-400) K/uL MPV 10.50 (7.40-12.00) fL Neut % (Auto) 85.6 H (48.0-80.0) % Lymph % (Auto) 8.1 L (16.0-40.0) % Brown % (Auto) 6.0 (0.0-15.0) % Eos % (Auto) 0.2 (0.0-7.0) % Baso % (Auto) 0.1 (0.0-1.5) % Neut # (Auto) 13.4 H (1.4-5.7) K/uL Lymph # (Auto) 1.3 (0.6-2.4) K/uL Brown # (Auto) 0.9 H (0.0-0.8) K/uL Eos # (Auto) 0.0 (0.0-0.7) K/uL Baso # (Auto) 0.0 (0.0-0.1) K/uL Nucleated RBC % 0.0 /100WBC Nucleated RBCs # 0 K/uL Urine Color Urine Appearance Urine pH (5.0-8.0) Ur Specific Colp (1.001-1.035) Urine Protein (NEGATIVE) mg/dL Urine Glucose (UA) (NEGATIVE) mg/dL Urine Ketones (NEGATIVE) mg/dL Urine Occult Blood (NEGATIVE) Urine Nitrite (NEGATIVE) Urine Bilirubin (NEGATIVE) Urine Urobilinogen (<2.0) EU/dL Ur Leukocyte Esterase (NEGATIVE) Urine RBC (0-2/HPF) Urine WBC (0-5/HPF) Ur Epithelial Cells (NONE-FEW) Urine Bacteria (NEGATIVE) Ur Random Creatinine mg/dL U Random Total Protein (<11.9) mg/dL Protein/Creatinin Ratio COVID-19 ([facility]) (NEGATIVE) Med Orders - Current: Current Medications Cephalexin (Keflex) 500 mg PO Q6HR [facility] Stop: 04/27/20 19:00 Lactated Ringer's (Ringers, Lactated) 1,000 mls @ 999 mls/hr IV ASDIRECTED [facility] Last Admin: 04/20/20 13:35 Dose: 999 mls/hr Documented by: Phenazopyridine HCl (Pyridium) 200 mg PO TID PRN PRN Reason: Pain (severe 7-10) - Exam General: Reports: Alert, Oriented, Cooperative, No Acute Distress HEENT: Reports: Pupils Equal, Pupils Reactive, Mucous Membr. Moist/[place] Neck: Reports: Supple Lungs: Reports: Clear to Auscultation, Normal Respiratory Effort Cardiovascular: Reports: Regular Rate, Regular Rhythm GI/Abdominal Exam: Normal Bowel Sounds, Soft, Non-Tender, No Organomegaly, No Distention, No Abnormal Bruit, No Mass, Pelvis Stable (Female) Exam: Normal External Exam, Enlarged Uterus Rectal (Female) Exam: Deferred Back Exam: Reports: Normal Inspection, Full Range of Motion Extremities: Normal Inspection, Normal Range of Motion, Non-Tender, No Pedal Edema, Normal Capillary Refill Skin: Reports: Warm, Dry, Intact Neurological: Reports: No New Focal Deficit Psy/Mental Status: Reports: Alert, Normal Affect, Normal Mood
[2020-04-20 16:35] LABS: BLOOD UREA NITROGEN,BUN 6 mg/dL (7.0-18.0); CARBON DIOXIDE,CO2 22.2 mmol/L (21.0-32.0); CHLORIDE,CL 103 mmol/L (98-107); GLUCOSE RANDOM 68 mg/dL (74-106); POTASSIUM,K 3.7 mmol/L (3.5-5.1); SODIUM,NA 137 mmol/L (136-145)
== END 2020-04-20 15:05 | disposition home or self-care (01) ==
LOC: MW.OBCHECK 10:05 → MW.OB 10:25 → MW.OBCHECK 10:42 → MW.OB 10:43
PROVIDERS: ADMIT Obstetrics & Gynecology; ATTEND Obstetrics & Gynecology
DX: O23.43 Unspecified infection of urinary tract in pregnancy, third trimester (principal); O47.03 False labor before 37 completed weeks of gestation, third trimester; O10.013 Pre-existing essential hypertension complicating pregnancy, third trimester; O99.343 Other mental disorders complicating pregnancy, third trimester; F32.9 Major depressive disorder, single episode, unspecified; F41.9 Anxiety disorder, unspecified; O99.333 Smoking (tobacco) complicating pregnancy, third trimester; F17.210 Nicotine dependence, cigarettes, uncomplicated; O99.213 Obesity complicating pregnancy, third trimester; E66.9 Obesity, unspecified; Z79.82 Long term (current) use of aspirin; Z79.899 Other long term (current) drug therapy; Z3A.34 34 weeks gestation of pregnancy; Z20.828 Contact with and (suspected) exposure to other viral communicable diseases
CPT/HCPCS: 36415; 59025; 76815; 76817; 80053; 81001; 82570; 84156; 85025; 87081; 87086; 87088; 87186; 87635; 96360; A9270; G0378; J7120; U0002

== ENCOUNTER 2020-05-21 06:26 | Inpatient (IN) | payer OTHER ==
[2020-05-21] MEDS ORDERED: Sodium Chloride 0.9% 2.5 ML Syringe FLUSH PRN (06:34)
[2020-05-21] MEDS ORDERED: Misoprostol 200 MCG Tab PO PRN (06:34)
[2020-05-21] MEDS ORDERED: Ampicillin 2 GM in Sodium Chloride 0.9% 100 ML IV ONE (06:34)
[2020-05-21] MEDS ORDERED: Sodium Chloride 0.9% 10 ML SDV IV PRN (06:34)
[2020-05-21] MEDS ORDERED: Methylergonovine 0.2 MG/1 ML Amp IM PRN (06:34)
[2020-05-21] MEDS ORDERED: Butorphanol 1 MG/ML SDV IVPUSH PRN (06:34)
[2020-05-21] MEDS ORDERED: Sodium Chloride 0.9% 10 ML Syringe FLUSH PRN (06:34)
[2020-05-21] MEDS ORDERED: Nalbuphine 10 MG/1 ML Vial IVPUSH PRN (06:34)
[2020-05-21] MEDS ORDERED: Lidocaine 1% 50 ML MDV INJECT PRN (06:34)
[2020-05-21] MEDS ORDERED: Carboprost Tromethamine 250 MCG/1 ML Amp IM PRN (06:34)
[2020-05-21] MEDS ORDERED: Tranexamic Acid 1,000 MG in Sodium Chloride 0.9% 100 ML IV PRN (06:34)
[2020-05-21] MEDS ORDERED: Water For Irrigation,Sterile 1,000 ML Container IRR PRN (06:34)
[2020-05-21] MEDS ORDERED: Ampicillin 2 GM AdvVial IV ONE (06:41)
[2020-05-21] MEDS ORDERED: Sodium Chloride 0.9% 100 ML ONE (06:43)
[2020-05-21] MEDS ORDERED: Lactated Ringers 1,000 ML IV SCH (06:45)
[2020-05-21] MEDS ORDERED: Oxytocin/0.9 % Sodium Chloride 30 UNIT/500 ML BAG IV SCH (06:45)
--- NOTE | 2020-05-21 07:37 | PCM.LDHP ---
L&D History of Present Illness - General Date of Service: 05/21/20 Admit Problem/Dx: Patient Status Order with Admit Dx/Problem 05/21/20 06:34 Patient Status [ADT] Routine Admission Diagnosis/Problem Admission Diagnosis/Problem - planned 05/21/20 07:33 presenting to L&D in active labor at 38 6/7 weeks; AARON: 05/29/20. O-, rubella immune, GBS-. Vertex presentation by Carl[facility] and confirmed by bedside ultrasound. SVE: 6-7cm/80%/-2, soft, midposition per nurse report. Source of Information: Patient History Limitations: Reports: No Limitations - Related Data Allergies/Adverse Reactions: Allergies Allergy/AdvReac Type Severity Reaction Status Date / Time No Known Allergies Allergy Verified 04/20/20 10:39 Home Medications: Home Meds Aspirin 81 mg PO DAILY 04/20/20 [History] FLUoxetine HCl [Fluoxetine] 1 tab PO DAILY 04/20/20 [History] NIFEdipine [Nifedipine ER] 60 mg PO DAILY 04/20/20 [History] Pnv No.95/Ferrous Fum/Folic AC [ Vitamin Tablet] 1 tab PO DAILY 04/20/20 [History] Past Medical History - Past Health History Medical/Surgical History: Denies Medical/Surgical History HEENT History: Reports: None Cardiovascular History: Reports: Hypertension Respiratory History: Reports: None Gastrointestinal History: Reports: None Genitourinary History: Reports: UTI, Recurrent 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: Musculoskeletal History: Reports: None Neurological History: Reports: None Psychiatric History: Reports: Anxiety, Depression Endocrine/Metabolic History: Reports: Obesity/BMI 30+ Hematologic History: Reports: None Immunologic History: Reports: None Dermatologic History: Reports: None - Infectious Disease History Infectious Disease History: Reports: None - Past Surgical History Head Surgeries/Procedures: Reports: None Social & Family History - Family History Family Medical History: Noncontributory - Caffeine Use Caffeine Use: Reports: Coffee, Soda H&P Review of Systems - Review of Systems: Review Of Systems: See Below General: Reports: No Symptoms HEENT: Reports: No Symptoms Pulmonary: Reports: No Symptoms Cardiovascular: Reports: No Symptoms Gastrointestinal: Reports: No Symptoms Genitourinary: Reports: No Symptoms Musculoskeletal: Reports: No Symptoms Skin: Reports: No Symptoms Psychiatric: Reports: No Symptoms Neurological: Reports: No Symptoms Hematologic/Lymphatic: Reports: No Symptoms Immunologic: Reports: No Symptoms L&D Exam - Exam Exam: See Below - Vital Signs Weight: 213 lb - OB Specific Contraction Intensity: Mild to Moderate Movement: Active Heart Tones: Present Heart Rate (FHR) Variability: Moderate (6-25 bmp) Presentation: Vertex - Mcgee Score Mcgee Score Cervix Position: Midposition Mcgee Score Consistency: Soft Mcgee Score Effacement: >80% Mcgee Score Dilation: > 5 cm Mcgee Score 's Station: -2 Mcgee Score Total: 10 - Exam General: Alert, Oriented, Cooperative Lungs: Normal Respiratory Effort Cardiovascular: Regular Rate, Regular Rhythm GI/Abdominal Exam: Soft, Non-Tender Rectal Exam: Deferred Genitourinary: Deferred Back Exam: Normal Inspection, Full Range of Motion Extremities: Normal Inspection, Normal Range of Motion, Non-Tender, Normal Capillary Refill Skin: Warm, Dry, Intact Neurological: Strength Equal Bilateral, Normal Speech, Normal Tone, Sensation Intact Psychiatric: Alert, Normal Affect, Normal Mood - Patient Data Lab Results Last 24 hrs: Laboratory Results - last 24 hr 05/21/20 Range/Units 06:30 WBC 12.57 H (4.0-11.0) K/uL RBC 4.10 L (4.30-5.90) M/uL Hgb 12.7 (12.0-16.0) g/dL Hct 38.0 (36.0-46.0) % MCV 92.7 (80.0-98.0) fL MCH 31.0 (27.0-32.0) pg MCHC 33.4 (31.0-37.0) g/dL RDW Std Deviation 47.3 (28.0-62.0) fl RDW Coeff of Joshua 14 (11.0-15.0) % Plt Count 252 (150-400) K/uL MPV 10.90 (7.40-12.00) fL Nucleated RBC % 0.0 /100WBC Nucleated RBCs # 0 K/uL Result Diagrams: 05/21/20 06:30 - Problem List (1) Chronic hypertension affecting SNOMED Code(s): 24538546 ICD Code: O10.919 - UNSP PRE-EXISTING HTN COMP , UNSP TRIMESTER Status: Acute Priority: High Current Visit: No (2) Supervision of normal IUP (intrauterine ) in multigravida SNOMED Code(s): 336751501, 143916030, 192646506 ICD Code: Z34.80 - ENCOUNTER FOR SUPRVSN OF NORMAL , UNSP TRIMESTER Status: Acute Priority: High Current Visit: No Qualifiers: Trimester: third trimester Qualified Code(s): Z34.83 - Encounter for supervision of other normal , third trimester Problem List Initiated/Reviewed/Updated: Yes Orders Last 24hrs: Active Orders 24 hr Category Date Time Status Patient Status [ADT] Routine ADT 05/21/20 06:34 Active May Shower [RC] ASDIRECTED Care 05/21/20 06:34 Active Notify Provider [RC] PRN Care 05/21/20 06:34 Active Up ad Kiki [RC] ASDIRECTED Care 05/21/20 06:34 Active Vital Signs [RC] PER UNIT ROUTINE Care 05/21/20 06:34 Active CORONAVIRUS COVID-19 [facility] [MOLEC] Stat Lab 05/21/20 06:50 Received RPR (SYPHILIS SERO) W/ RFLX [REF] Routine Lab 05/21/20 06:30 Received TYPE AND SCREEN [BBK] Routine Lab 05/21/20 06:30 Received Ampicillin 1 gm Med 05/21/20 11:00 Active Sodium Chloride 0.9% [Normal Saline] 50 ml IV Q4H Butorphanol [Stadol] Med 05/21/20 06:34 Active 1 mg IVPUSH Q1H PRN Carboprost Tromethamine [Hemabate DS] Med 05/21/20 06:34 Active 250 mcg IM ASDIRECTED PRN Lactated Ringers [Ringers, Lactated] 1,000 ml Med 05/21/20 06:45 Active IV ASDIRECTED Lidocaine 1% [Xylocaine 1%] Med 05/21/20 06:34 Active 50 ml INJECT ONETIME PRN Methylergonovine [Methergine] Med 05/21/20 06:34 Active 0.2 mg IM ASDIRECTED PRN Nalbuphine [Nubain] Med 05/21/20 06:34 Active 10 mg IVPUSH Q1H PRN Oxytocin/0.9 % Sodium Chloride [Oxytocin 30 Unit/500 ML Med 05/21/20 06:45 Active -NS] 30 unit in 500 ml IV TITRATE Sodium Chloride 0.9% [Normal Saline] Med 05/21/20 06:34 Active 10 ml IV ASDIRECTED PRN Sodium Chloride 0.9% [Saline Flush] Med 05/21/20 06:34 Active 10 ml FLUSH ASDIRECTED PRN Sodium Chloride 0.9% [Saline Flush] Med 05/21/20 06:34 Active 2.5 ml FLUSH ASDIRECTED PRN Tranexamic Acid [Cyklokapron] 1,000 mg Med 05/21/20 06:34 Active Sodium Chloride 0.9% [Normal Saline] 100 ml IV ONETIME Water For Irrigation,Sterile [Sterile Water for Med 05/21/20 06:34 Active Irrigation] 1,000 ml IRR ASDIRECTED PRN miSOPROStoL [Cytotec] Med 05/21/20 06:34 Active 200 mcg PO ONETIME PRN Scalp Electrode [WOMSER] Per Unit Routine Oth 05/21/20 06:34 Ordered Peripheral IV Insertion Adult [OM.PC] Routine Oth 05/21/20 06:34 Ordered Resuscitation Status Routine Resus Stat 05/21/20 06:34 Ordered Medication Orders Butorphanol Tartrate (Stadol) 1 mg IVPUSH Q1H PRN PRN Reason: Pain Carboprost Tromethamine (Hemabate Ds) 250 mcg IM ASDIRECTED PRN PRN Reason: Post Hemorrhage Oxytocin/Sodium Chloride (Oxytocin 30 Unit/500 Ml-Ns) 30 unit in 500 mls @ 500 mls/hr IV TITRATE [facility] Tranexamic Acid 1,000 mg/ (Sodium Chloride) 110 mls @ 660 mls/hr IV ONETIME PRN PRN Reason: Bleeding Lactated Ringer's (Ringers, Lactated) 1,000 mls @ 150 mls/hr IV ASDIRECTED [facility] Last Admin: 05/21/20 07:05 Dose: 150 mls/hr Documented by: WILLSHE Ampicillin Sodium 1 gm/ Sodium (Chloride) 50 mls @ 100 mls/hr IV Q4H [facility] Lidocaine HCl (Xylocaine 1%) 50 ml INJECT ONETIME PRN PRN Reason: Laceration repair Methylergonovine Maleate (Methergine) 0.2 mg IM ASDIRECTED PRN PRN Reason: Post Hemorrhage Misoprostol (Cytotec) 200 mcg PO ONETIME PRN PRN Reason: Post Hemorrhage Nalbuphine HCl (Nubain) 10 mg IVPUSH Q1H PRN PRN Reason: Pain (severe 7-10) Sodium Chloride (Saline Flush) 10 ml FLUSH ASDIRECTED PRN PRN Reason: Keep Vein Open Sodium Chloride (Saline Flush) 2.5 ml FLUSH ASDIRECTED PRN PRN Reason: Keep Vein Open Sodium Chloride (Normal Saline) 10 ml IV ASDIRECTED PRN PRN Reason: IV Use Sterile Water (Sterile Water For Irrigation) 1,000 ml IRR ASDIRECTED PRN PRN Reason: delivery Assessment/Plan Comment:: Admit A: presenting to L&D in active labor at 38 6/7 weeks; AARON: 05/29/20. notable for chronic hypertension, well controlled with nifedipine. O-, rubella immune, GBS-. Vertex presentation by Carl's and confirmed by bedside ultrasound. SVE: 6-7cm/80%/-2, soft, midposition per nurse report. P: Anticipate , GBS antibiotic prophylaxis initiated, epidural PRN, Dr. Rojas updated.
--- NOTE | 2020-05-21 09:13 | PCM.DEL ---
L & D Note - General Info Date of Service: 05/21/20 Mother's Due Date: 05/29/20 - Delivery Note Labor: Spontaneous Delivery Outcome: Livebirth Infant Delivery Method: Spontaneous Vaginal Delivery-Single Presentation: Vertex Nuchal Cord: None Anesthesia Type: None Episiotomy Type: None Laceration: None Placenta: Intact, Spontaneous Cord: 3 Vessels Estimated Blood Loss: 300 Alpha: Suctioned, Bulb Syringe, Stimulated, Warmed Score 1 min: 8 Score 5 min: 8 Second Stage Interventions: Reports: Encouragement Given, Pushing Effectively Delivery Comments (Free Text/Narrative):: viable female; only one dose ampicillin delivered for GBS prophylaxis prior to delivery, inadequate prophylaxis; AROM less than 5 minutes before delivery; meconium-stained fluid; RT called and en route to delivery; head delivered with good pushing, shoulders and body followed easily after; terminal meconium; baby to mom's abdomen [id number] for assessment; APGARs 8/8; weight pending; cord doubly clamped, cut by FOB after approximately 2 minutes; baby to warmer for further assessment; placenta delivered grossly intact, giraldo; 3VC; EBL 300mL; perineum intact; pitocin to IVF; mom and baby left in stable condition with RT and nurses at bedside for assessment - General Info Date of Service: 05/21/20 Admission Dx/Problem (Free Text): Patient Status Order with Admit Dx/Problem 05/21/20 06:34 Patient Status [ADT] Routine Admission Diagnosis/Problem Admission Diagnosis/Problem - planned 05/21/20 07:33 presenting to L&D in active labor at 38 6/7 weeks; AARON: 05/29/20. O-, rubella immune, GBS-. Vertex presentation by Carl's and confirmed by bedside ultrasound. SVE: 6-7cm/80%/-2, soft, midposition per nurse report. Functional Status: Reports: Pain Controlled - Review of Systems General: Reports: No Symptoms HEENT: Reports: No Symptoms Pulmonary: Reports: No Symptoms Cardiovascular: Reports: No Symptoms Gastrointestinal: Reports: No Symptoms Genitourinary: Reports: No Symptoms Musculoskeletal: Reports: No Symptoms Skin: Reports: No Symptoms Neurological: Reports: No Symptoms Psychiatric: Reports: No Symptoms - Patient Data Weight - Most Recent: 213 lb Lab Results Last 24 Hours: Laboratory Results - last 24 hr 05/21/20 05/21/20 05/21/20 Range/Units 06:30 06:30 06:50 WBC 12.57 H (4.0-11.0) K/uL RBC 4.10 L (4.30-5.90) M/uL Hgb 12.7 (12.0-16.0) g/dL Hct 38.0 (36.0-46.0) % MCV 92.7 (80.0-98.0) fL MCH 31.0 (27.0-32.0) pg MCHC 33.4 (31.0-37.0) g/dL RDW Std Deviation 47.3 (28.0-62.0) fl RDW Coeff of Joshua 14 (11.0-15.0) % Plt Count 252 (150-400) K/uL MPV 10.90 (7.40-12.00) fL Nucleated RBC % 0.0 /100WBC Nucleated RBCs # 0 K/uL SARS-CoV-2 RNA (CLEO) NEGATIVE (NEGATIVE) Blood Type O NEGATIVE Antibody Screen NEGATIVE Med Orders - Current: Current Medications Butorphanol Tartrate (Stadol) 1 mg IVPUSH Q1H PRN PRN Reason: Pain Carboprost Tromethamine (Hemabate Ds) 250 mcg IM ASDIRECTED PRN PRN Reason: Post Hemorrhage Oxytocin/Sodium Chloride (Oxytocin 30 Unit/500 Ml-Ns) 30 unit in 500 mls @ 500 mls/hr IV TITRATE [facility] Tranexamic Acid 1,000 mg/ (Sodium Chloride) 110 mls @ 660 mls/hr IV ONETIME PRN PRN Reason: Bleeding Lactated Ringer's (Ringers, Lactated) 1,000 mls @ 150 mls/hr IV ASDIRECTED [facility] Last Admin: 05/21/20 07:05 Dose: 150 mls/hr Documented by: Ampicillin Sodium 1 gm/ Sodium (Chloride) 50 mls @ 100 mls/hr IV Q4H [facility] Lidocaine HCl (Xylocaine 1%) 50 ml INJECT ONETIME PRN PRN Reason: Laceration repair Misoprostol (Cytotec) 200 mcg PO ONETIME PRN PRN Reason: Post Hemorrhage Nalbuphine HCl (Nubain) 10 mg IVPUSH Q1H PRN PRN Reason: Pain (severe 7-10) Sodium Chloride (Saline Flush) 10 ml FLUSH ASDIRECTED PRN PRN Reason: Keep Vein Open Sodium Chloride (Saline Flush) 2.5 ml FLUSH ASDIRECTED PRN PRN Reason: Keep Vein Open Sodium Chloride (Normal Saline) 10 ml IV ASDIRECTED PRN PRN Reason: IV Use Sterile Water (Sterile Water For Irrigation) 1,000 ml IRR ASDIRECTED PRN PRN Reason: delivery Discontinued Medications Ampicillin Sodium (Ampicillin) Confirm Administered Dose 2 gm IV .STK-MED ONE Stop: 05/21/20 06:42 Ampicillin Sodium 2 gm/ Sodium (Chloride) 100 mls @ 200 mls/hr IV ONETIME ONE Stop: 05/21/20 07:03 Last Admin: 05/21/20 07:06 Dose: 200 mls/hr Documented by: Ampicillin Sodium 1 gm/ Sodium (Chloride) 50 mls @ 100 mls/hr IV Q4H [facility] Sodium Chloride (Normal Saline) Confirm Administered Dose 100 mls @ as directed .ROUTE .STK-MED ONE Stop: 05/21/20 06:44 Methylergonovine Maleate (Methergine) 0.2 mg IM ASDIRECTED PRN PRN Reason: Post Hemorrhage - Exam General: Alert, Oriented, Cooperative, No Acute Distress Lungs: Normal Respiratory Effort Cardiovascular: Regular Rate, Regular Rhythm GI/Abdominal Exam: Soft, Non-Tender (Female) Exam: Normal External Exam Back Exam: Normal Inspection, Full Range of Motion Extremities: Normal Inspection, Normal Range of Motion, Non-Tender, Normal Capillary Refill Skin: Warm, Dry, Intact Neurological: No New Focal Deficit, Normal Speech, Normal Tone, Strength Equal Bilateral, Sensation Intact Psy/Mental Status: Alert, Normal Affect, Normal Mood - Problem List & Annotations (1) Chronic hypertension affecting SNOMED Code(s): 65245204 Code(s): O10.919 - UNSP PRE-EXISTING HTN COMP , UNSP TRIMESTER Status: Acute Priority: High Current Visit: No (2) Supervision of normal IUP (intrauterine ) in multigravida SNOMED Code(s): 983490888, 060777274, 953834198 Code(s): Z34.80 - ENCOUNTER FOR SUPRVSN OF NORMAL , UNSP TRIMESTER Status: Acute Priority: High Current Visit: No Qualifiers: Trimester: third trimester Qualified Code(s): Z34.83 - Encounter for supervision of other normal , third trimester (3) (spontaneous vaginal delivery) SNOMED Code(s): 996116691 Code(s): O80 - ENCOUNTER FOR FULL-TERM UNCOMPLICATED DELIVERY Status: Acute Priority: High Current Visit: Yes - Problem List Review Problem List Initiated/Reviewed/Updated: Yes - Plan Plan:: Admit A: presenting to L&D in active labor at 38 6/7 weeks; AARON: 05/29/20. notable for chronic hypertension, well controlled with nifedipine. O-, rubella immune, GBS-. Vertex presentation by Carl's and confirmed by bedside ultrasound. SVE: 6-7cm/80%/-2, soft, midposition per nurse report. P: Anticipate , GBS antibiotic prophylaxis initiated, epidural PRN, Dr. Rojas updated. Delivery A: viable female; head delivered with good pushing, shoulders and body followed easily after; terminal meconium; baby to mom's abdomen [id number] for assessment; APGARs 8/8; weight pending; cord doubly clamped, cut by FOB after approximately 2 minutes; baby to warmer for further assessment; placenta delivered grossly intact, giraldo; 3VC; EBL 300mL; perineum intact; pitocin to IVF; mom and baby left in stable condition with RT and nurses at bedside for assessment P: Routine plan of care; anticipate 48 hour pp stay due to inadequate GBS prophylaxis prior to delivery (only one dose of ampicillin received); Dr. Rojas updated
[2020-05-21] MEDS ORDERED: Benzocaine/Menthol 20%-0.5% Spray 78 GM Cannister TOP PRN (09:17)
[2020-05-21] MEDS ORDERED: Bisacodyl 10 MG Supp RECTAL PRN (09:17)
[2020-05-21] MEDS ORDERED: Lanolin 100% Cream 7 GM Tube TOP PRN (09:17)
[2020-05-21] MEDS ORDERED: Acetaminophen 500 MG Tab PO PRN ×2 (09:17)
[2020-05-21] MEDS ORDERED: oxyCODONE 5 MG Tab PO PRN (09:17)
[2020-05-21] MEDS ORDERED: Witch Hazel Medicated Pads 40/Jar TOP PRN (09:17)
[2020-05-21] MEDS ORDERED: Ibuprofen 400 MG Tab PO PRN (09:17)
[2020-05-21] MEDS: Docusate Sodium 100 MG Cap PO PRN (09:45)
[2020-05-21] MEDS: Ibuprofen 800 MG Tab PO PRN ×2 (09:46→18:36)
[2020-05-21] MEDS ORDERED: Ampicillin 1 GM in Sodium Chloride 0.9% 50 ML IV SCH ×4 (11:00)
[2020-05-21] MEDS: Aspirin 81 MG Tab.EC PO SCH (21:25)
[2020-05-21] MEDS: NIFEdipine 30 MG Tab.ER PO SCH (21:26)
[2020-05-21] MEDS: FLUoxetine 20 MG Cap PO SCH (21:37)
[2020-05-21] MEDS ORDERED: Prenatal Multivitamin and Multimineral with Iron Tab PO SCH (22:00)
--- NOTE | 2020-05-22 07:56 | PCM.PNPP ---
- General Info Date of Service: 05/22/20 Admission Dx/Problem (Free Text): Patient Status Order with Admit Dx/Problem 05/21/20 06:34 Patient Status [ADT] Routine Admission Diagnosis/Problem Admission Diagnosis/Problem - planned 05/21/20 07:33 presenting to L&D in active labor at 38 6/7 weeks; AARON: 05/29/20. O-, rubella immune, GBS-. Vertex presentation by Carl's and confirmed by bedside ultrasound. SVE: 6-7cm/80%/-2, soft, midposition per nurse report. Functional Status: Reports: Pain Controlled, Tolerating Diet, Ambulating, Urinating - Review of Systems General: Reports: No Symptoms HEENT: Reports: No Symptoms Pulmonary: Reports: No Symptoms Cardiovascular: Reports: No Symptoms Gastrointestinal: Reports: No Symptoms Genitourinary: Reports: No Symptoms Musculoskeletal: Reports: No Symptoms Skin: Reports: No Symptoms Neurological: Reports: No Symptoms Psychiatric: Reports: No Symptoms - General Info Date of Service: 05/22/20 - Patient Data Vital Signs - Most Recent: Last Vital Signs Temp 97.5 F 05/22/20 05:00 Pulse 85 05/22/20 05:00 Resp 20 05/22/20 05:00 BP 127/72 05/22/20 05:00 Pulse Ox 99 05/22/20 05:00 Weight - Most Recent: 213 lb Lab Results - Last 24 Hours: Laboratory Results - last 24 hr 05/21/20 05/21/20 05/22/20 Range/Units 06:50 12:08 05:57 Hgb 11.5 L (12.0-16.0) g/dL Hct 34.8 L (36.0-46.0) % SARS-CoV-2 RNA (CLEO) NEGATIVE (NEGATIVE) Screen NEGATIVE (NEGATIVE) RhIG Candidate? YES Rhogam Indicated YES, BABY RH POS H Med Orders - Current: Current Medications Acetaminophen (Tylenol Extra Strength) 500 mg PO Q4H PRN PRN Reason: Pain Acetaminophen (Tylenol Extra Strength) 1,000 mg PO Q4H PRN PRN Reason: Pain Aspirin (Halfprin) 81 mg PO DAILY@2200 [facility] Last Admin: 05/21/20 21:25 Dose: 81 mg Documented by: Benzocaine/Menthol (Dermoplast Pain Relief 20%-0.5% [place]) 78 gm TOP ASDIRECTED PRN PRN Reason: Perineal Comfort Measure Bisacodyl (Dulcolax) 10 mg RECTAL ONETIME PRN PRN Reason: Constipation Docusate Sodium (Colace) 100 mg PO BID PRN PRN Reason: Constipation Last Admin: 05/21/20 09:45 Dose: 100 mg Documented by: Emollient Ointment (Lansinoh Hpa) 0 gm TOP ASDIRECTED PRN PRN Reason: Sore Nipples Last Admin: 05/21/20 09:45 Dose: 1 tube Documented by: Fluoxetine HCl (Prozac) 20 mg PO BEDTIME [facility] Last Admin: 05/21/20 21:37 Dose: 20 mg Documented by: Ibuprofen (Motrin) 400 mg PO Q4H PRN PRN Reason: Pain Ibuprofen (Motrin) 800 mg PO Q6H PRN PRN Reason: Pain Last Admin: 05/21/20 18:36 Dose: 800 mg Documented by: Nifedipine (Procardia Xl) 60 mg PO BEDTIME [facility] Last Admin: 05/21/20 21:26 Dose: 60 mg Documented by: Oxycodone HCl (Oxycodone) 5 mg PO Q2H PRN PRN Reason: Pain Prenat Multivit/[place]/Iron/Folic Ac ( Mtr) 1 each PO DAILY@2200 [facility] Last Admin: 05/21/20 21:37 Dose: 1 each Documented by: Jet Velásquez ([facility]) 1 pad TOP ASDIRECTED PRN PRN Reason: comfort care Discontinued Medications Ampicillin Sodium (Ampicillin) Confirm Administered Dose 2 gm IV .STK-MED ONE Stop: 05/21/20 06:42 Last Admin: 05/21/20 11:36 Dose: Not Given Documented by: Butorphanol Tartrate (Stadol) 1 mg IVPUSH Q1H PRN PRN Reason: Pain Carboprost Tromethamine (Hemabate Ds) 250 mcg IM ASDIRECTED PRN PRN Reason: Post Hemorrhage Oxytocin/Sodium Chloride (Oxytocin 30 Unit/500 Ml-Ns) 30 unit in 500 mls @ 500 mls/hr IV TITRATE [facility] Last Admin: 05/21/20 08:56 Dose: 500 mls/hr Documented by: Tranexamic Acid 1,000 mg/ (Sodium Chloride) 110 mls @ 660 mls/hr IV ONETIME PRN PRN Reason: Bleeding Ampicillin Sodium 2 gm/ Sodium (Chloride) 100 mls @ 200 mls/hr IV ONETIME ONE Stop: 05/21/20 07:03 Last Admin: 05/21/20 07:06 Dose: 200 mls/hr Documented by: Lactated Ringer's (Ringers, Lactated) 1,000 mls @ 150 mls/hr IV ASDIRECTED [facility] Last Admin: 05/21/20 07:05 Dose: 150 mls/hr Documented by: Ampicillin Sodium 1 gm/ Sodium (Chloride) 50 mls @ 100 mls/hr IV Q4H [facility] Sodium Chloride (Normal Saline) Confirm Administered Dose 100 mls @ as directed .ROUTE .[facility] ONE Stop: 05/21/20 06:44 Last Admin: 05/21/20 11:37 Dose: Not Given Documented by: Ampicillin Sodium 1 gm/ Sodium (Chloride) 50 mls @ 100 mls/hr IV Q4H [facility] Lidocaine HCl (Xylocaine 1%) 50 ml INJECT ONETIME PRN PRN Reason: Laceration repair Methylergonovine Maleate (Methergine) 0.2 mg IM ASDIRECTED PRN PRN Reason: Post Hemorrhage Misoprostol (Cytotec) 200 mcg PO ONETIME PRN PRN Reason: Post Hemorrhage Nalbuphine HCl (Nubain) 10 mg IVPUSH Q1H PRN PRN Reason: Pain (severe 7-10) Sodium Chloride (Saline Flush) 10 ml FLUSH ASDIRECTED PRN PRN Reason: Keep Vein Open Sodium Chloride (Saline Flush) 2.5 ml FLUSH ASDIRECTED PRN PRN Reason: Keep Vein Open Sodium Chloride (Normal Saline) 10 ml IV ASDIRECTED PRN PRN Reason: IV Use Sterile Water (Sterile Water For Irrigation) 1,000 ml IRR ASDIRECTED PRN PRN Reason: delivery - Infant Interaction Infant Disposition, : Jermyn in Room with Family Infant Interaction: Holding Infant Infant Feeding: Breastfed ; Nursed Well Support Person: - Recovery Exam Fundal Tone: Firm Fundal Level: 1 Fingerbreadths Below Umbilicus Fundal Placement: Midline Lochia Amount: Scant Lochia Color: Rubra/Red Perineum Description: Other (see below) Other Perinuem Description: Skid nguyen Episiotomy/Laceration: None Bladder Status: Voiding Urinary Elimination: Voided - Exam General: Alert, Oriented, Cooperative, No Acute Distress Lungs: Normal Respiratory Effort Cardiovascular: Regular Rate, Regular Rhythm GI/Abdominal Exam: Soft, Non-Tender Extremities: Normal Inspection, Normal Range of Motion, Non-Tender Skin: Warm, Dry, Intact Neurological: No New Focal Deficit, Normal Speech, Normal Tone, Strength Equal Bilateral, Sensation Intact Psy/Mental Status: Alert, Normal Affect, Normal Mood - Problem List & Annotations (1) Chronic hypertension affecting SNOMED Code(s): 87099158 Code(s): O10.919 - UNSP PRE-EXISTING HTN COMP , UNSP TRIMESTER Status: Acute Priority: High Current Visit: No (2) Supervision of normal IUP (intrauterine ) in multigravida SNOMED Code(s): 125530291, 826597512, 834947380 Code(s): Z34.80 - ENCOUNTER FOR SUPRVSN OF NORMAL , UNSP TRIMESTER Status: Acute Priority: High Current Visit: No Qualifiers: Trimester: third trimester Qualified Code(s): Z34.83 - Encounter for supervision of other normal , third trimester (3) (spontaneous vaginal delivery) SNOMED Code(s): 450307746 Code(s): O80 - ENCOUNTER FOR FULL-TERM UNCOMPLICATED DELIVERY Status: Acute Priority: High Current Visit: Yes - Problem List Review Problem List Initiated/Reviewed/Updated: Yes - My Orders Last 24 Hours: My Active Orders 05/21/20 09:17 Patient Status [ADT] Routine May Shower [RC] ASDIRECTED Up ad Kiki [RC] ASDIRECTED Vital Signs [RC] PER UNIT ROUTINE Acetaminophen [Tylenol Extra Strength] 1,000 mg PO Q4H PRN Acetaminophen [Tylenol Extra Strength] 500 mg PO Q4H PRN Benzocaine/Menthol [Dermoplast Pain Relief 20%-0.5% Dawes] 78 gm TOP ASDIRECTED PRN Docusate Sodium [Colace] 100 mg PO BID PRN Ibuprofen [Motrin] 400 mg PO Q4H PRN Ibuprofen [Motrin] 800 mg PO Q6H PRN Lanolin [Lansinoh HPA] See Dose Instructions TOP ASDIRECTED PRN bisacodyL [Dulcolax] 10 mg RECTAL ONETIME PRN oxyCODONE 5 mg PO Q2H PRN jet Magnolia [Tucks] 1 pad TOP ASDIRECTED PRN Assess Lochia [WOMSER] Per Unit Routine Assess Uterine Involution [WOMSER] Per Unit Routine Peripheral IV Discontinue [OM.PC] Routine Resuscitation Status Routine 05/21/20 22:00 Aspirin [Halfprin] 81 mg PO DAILY@2200 FLUoxetine [PROzac] 20 mg PO BEDTIME NIFEdipine [Procardia XL] 60 mg PO BEDTIME Vit/FA/Fe Fumarate/Se [ MTR] 1 each PO DAILY@2199 - Plan Plan:: Admit A: presenting to L&D in active labor at 38 6/7 weeks; AARON: 05/29/20. notable for chronic hypertension, well controlled with nifedipine. O-, rubella immune, GBS-. Vertex presentation by Carl's and confirmed by bedside ultrasound. SVE: 6-7cm/80%/-2, soft, midposition per nurse report. P: Anticipate , GBS antibiotic prophylaxis initiated, epidural PRN, Dr. Rojas updated. Delivery A: viable female; head delivered with good pushing, shoulders and body followed easily after; terminal meconium; baby to mom's abdomen [id number] for assessment; APGARs 8/8; weight pending; cord doubly clamped, cut by FOB after approximately 2 minutes; baby to warmer for further assessment; placenta delivered grossly intact, giraldo; 3VC; EBL 300mL; perineum intact; pitocin to IVF; mom and baby left in stable condition with RT and nurses at bedside for assessment P: Routine plan of care; anticipate 48 hour pp stay due to inadequate GBS prophylaxis prior to delivery (only one dose of ampicillin received); Dr. Rojas updated PP Day 1 A: well and bonding well with infant; ambulating, urinating, and tolerating diet; no complaints/concerns/questions at this time. P: Routine plan of care; plan for discharge after 48 hours (tomorrow AM). Dr. Rojas updated.
[2020-05-22] MEDS: Ibuprofen 800 MG Tab PO PRN ×2 (12:23→21:02)
[2020-05-22] MEDS: Docusate Sodium 100 MG Cap PO PRN (17:30)
[2020-05-22] MEDS: NIFEdipine 30 MG Tab.ER PO SCH (21:01)
[2020-05-22] MEDS: FLUoxetine 20 MG Cap PO SCH (22:00)
[2020-05-22] MEDS: Aspirin 81 MG Tab.EC PO SCH (22:01)
[2020-05-23 08:34] VITALS: BP 122/71; PULSE 88
--- NOTE | 2020-05-23 09:24 | PCM.DCSUM1 ---
Discharge Summary - Hospital Course Free Text/Narrative:: Discharge home with infant. Follow up in 6 weeks for visit. Diagnosis: Stroke: No Modified Owen Scale: No Symptoms at All Modified Owen Scale Score: 0 - Discharge Data Discharge Date: 05/23/20 Discharge Disposition: Home, Self-Care 01 Condition: Good - Referral to Home Health Primary Care Physician: PCP None - Patient Instructions Diet: Usual Diet as Tolerated Activity: As Tolerated, No Strenuous Activities, Rest and Relax Today Driving: May Drive Today Showering/Bathing: May Shower Notify Provider of: Fever, Increased Pain, Swelling and Redness Other/Special Instructions: Discharge home with . Follow up in 6 weeks for visit. - Discharge Plan *PRESCRIPTION DRUG MONITORING PROGRAM REVIEWED*: Not Applicable *COPY OF PRESCRIPTION DRUG MONITORING REPORT IN PATIENT REBA: Not Applicable Home Medications: Home Meds Aspirin 81 mg PO DAILY 04/20/20 [History] FLUoxetine HCl [Fluoxetine] 1 tab PO DAILY 04/20/20 [History] NIFEdipine [Nifedipine ER] 60 mg PO DAILY 04/20/20 [History] Pnv No.95/Ferrous Fum/Folic AC [ Vitamin Tablet] 1 tab PO DAILY 04/20/20 [History] Oxygen Therapy Mode: Room Air Patient Handouts: Baby Blues, Care After Vaginal Delivery Referrals: [facility] [Outside] Alexia Hernandez CNM, [employer]IBER [Mid-] - 07/05/20 2:00 pm - Discharge Summary/Plan Comment DC Time >30 min.: No - General Info Date of Service: 05/23/20 Admission Dx/Problem (Free Text: Patient Status Order with Admit Dx/Problem 05/21/20 06:34 Patient Status [ADT] Routine Admission Diagnosis/Problem Admission Diagnosis/Problem - planned 05/21/20 07:33 presenting to L&D in active labor at 38 6/7 weeks; AARON: 05/29/20. O-, rubella immune, GBS-. Vertex presentation by Carl's and confirmed by bedside ultrasound. SVE: 6-7cm/80%/-2, soft, midposition per nurse report. Functional Status: Reports: Pain Controlled, Tolerating Diet, Ambulating, Urinating - Review of Systems General: Reports: No Symptoms HEENT: Reports: No Symptoms Pulmonary: Reports: No Symptoms Cardiovascular: Reports: No Symptoms Gastrointestinal: Reports: No Symptoms Genitourinary: Reports: No Symptoms Musculoskeletal: Reports: No Symptoms Skin: Reports: No Symptoms Neurological: Reports: No Symptoms Psychiatric: Reports: No Symptoms - Patient Data Vitals - Most Recent: Last Vital Signs Temp 36.5 C 05/23/20 08:00 Pulse 88 05/23/20 08:00 Resp 16 05/23/20 08:00 BP 122/71 05/23/20 08:00 Pulse Ox 98 05/23/20 08:00 Weight - Most Recent: 96.615 kg I&O - Last 24 hours: Intake & Output 05/22/20 05/23/20 05/23/20 22:59 06:59 14:59 Intake Total 2 Balance 2 Med Orders - Current: Current Medications Acetaminophen (Tylenol Extra Strength) 500 mg PO Q4H PRN PRN Reason: Pain Acetaminophen (Tylenol Extra Strength) 1,000 mg PO Q4H PRN PRN Reason: Pain Aspirin (Halfprin) 81 mg PO DAILY@2200 [facility] Last Admin: 05/22/20 22:01 Dose: 81 mg Documented by: Benzocaine/Menthol (Dermoplast Pain Relief 20%-0.5% [place]) 78 gm TOP ASDIRECTED PRN PRN Reason: Perineal Comfort Measure Bisacodyl (Dulcolax) 10 mg RECTAL ONETIME PRN PRN Reason: Constipation Docusate Sodium (Colace) 100 mg PO BID PRN PRN Reason: Constipation Last Admin: 05/22/20 17:30 Dose: 100 mg Documented by: Emollient Ointment (Lansinoh Hpa) 0 gm TOP ASDIRECTED PRN PRN Reason: Sore Nipples Last Admin: 05/21/20 09:45 Dose: 1 tube Documented by: Fluoxetine HCl (Prozac) 20 mg PO BEDTIME [facility] Last Admin: 05/22/20 22:00 Dose: 20 mg Documented by: Ibuprofen (Motrin) 400 mg PO Q4H PRN PRN Reason: Pain Ibuprofen (Motrin) 800 mg PO Q6H PRN PRN Reason: Pain Last Admin: 05/22/20 21:02 Dose: 800 mg Documented by: Nifedipine (Procardia Xl) 60 mg PO BEDTIME [facility] Last Admin: 05/22/20 21:01 Dose: 60 mg Documented by: Oxycodone HCl (Oxycodone) 5 mg PO Q2H PRN PRN Reason: Pain Prenat Multivit/[place]/Iron/Folic Ac ( Mtr) 1 each PO DAILY@2200 [facility] Last Admin: 05/21/20 21:37 Dose: 1 each Documented by: Jet Velásquez ([facility]) 1 pad TOP ASDIRECTED PRN PRN Reason: comfort care Discontinued Medications Ampicillin Sodium (Ampicillin) Confirm Administered Dose 2 gm IV .STK-MED ONE Stop: 05/21/20 06:42 Last Admin: 05/21/20 11:36 Dose: Not Given Documented by: Butorphanol Tartrate (Stadol) 1 mg IVPUSH Q1H PRN PRN Reason: Pain Carboprost Tromethamine (Hemabate Ds) 250 mcg IM ASDIRECTED PRN PRN Reason: Post Hemorrhage Oxytocin/Sodium Chloride (Oxytocin 30 Unit/500 Ml-Ns) 30 unit in 500 mls @ 500 mls/hr IV TITRATE [facility] Last Admin: 05/21/20 08:56 Dose: 500 mls/hr Documented by: Tranexamic Acid 1,000 mg/ (Sodium Chloride) 110 mls @ 660 mls/hr IV ONETIME PRN PRN Reason: Bleeding Ampicillin Sodium 2 gm/ Sodium (Chloride) 100 mls @ 200 mls/hr IV ONETIME ONE Stop: 05/21/20 07:03 Last Admin: 05/21/20 07:06 Dose: 200 mls/hr Documented by: Lactated Ringer's (Ringers, Lactated) 1,000 mls @ 150 mls/hr IV ASDIRECTED [facility] Last Admin: 05/21/20 07:05 Dose: 150 mls/hr Documented by: Ampicillin Sodium 1 gm/ Sodium (Chloride) 50 mls @ 100 mls/hr IV Q4H [facility] Sodium Chloride (Normal Saline) Confirm Administered Dose 100 mls @ as directed .ROUTE .STK-[facility] ONE Stop: 05/21/20 06:44 Last Admin: 05/21/20 11:37 Dose: Not Given Documented by: Ampicillin Sodium 1 gm/ Sodium (Chloride) 50 mls @ 100 mls/hr IV Q4H [facility] Lidocaine HCl (Xylocaine 1%) 50 ml INJECT ONETIME PRN PRN Reason: Laceration repair Methylergonovine Maleate (Methergine) 0.2 mg IM ASDIRECTED PRN PRN Reason: Post Hemorrhage Misoprostol (Cytotec) 200 mcg PO ONETIME PRN PRN Reason: Post Hemorrhage Nalbuphine HCl (Nubain) 10 mg IVPUSH Q1H PRN PRN Reason: Pain (severe 7-10) Sodium Chloride (Saline Flush) 10 ml FLUSH ASDIRECTED PRN PRN Reason: Keep Vein Open Sodium Chloride (Saline Flush) 2.5 ml FLUSH ASDIRECTED PRN PRN Reason: Keep Vein Open Sodium Chloride (Normal Saline) 10 ml IV ASDIRECTED PRN PRN Reason: IV Use Sterile Water (Sterile Water For Irrigation) 1,000 ml IRR ASDIRECTED PRN PRN Reason: delivery - Exam General: Reports: Alert, Oriented, Cooperative, No Acute Distress Cardiovascular: Reports: Regular Rhythm (Female) Exam: Deferred, Vaginal Bleeding Rectal (Female) Exam: Deferred Back Exam: Reports: Full Range of Motion Extremities: Normal Range of Motion, No Pedal Edema Skin: Reports: Warm, Dry, Intact Neurological: Reports: No New Focal Deficit, Normal Gait, Normal Speech, Normal Tone, Strength Equal Bilateral, Sensation Intact Psy/Mental Status: Reports: Alert, Normal Affect, Normal Mood
== END 2020-05-23 10:59 | disposition home or self-care (01) | DRG 807 ==
LOC: MW.OBCHECK 06:26 → MW.OB 06:32 → OBSVTOIN 08:51 → MW.OB 08:51
PROVIDERS: ADMIT Obstetrics & Gynecology; ATTEND Obstetrics & Gynecology
PROC: 10E0XZZ Delivery of Products of Conception, External Approach (ICD-10-PCS; principal; 2020-05-21)
PROC: 10907ZC Drainage of Amniotic Fluid, Therapeutic from Products of Conception, Via Natural or Artificial Opening (ICD-10-PCS; 2020-05-21)
DX: O10.92 Unspecified pre-existing hypertension complicating childbirth (principal); Z37.0 Single live birth; Z3A.38 38 weeks gestation of pregnancy; Z20.828 Contact with and (suspected) exposure to other viral communicable diseases; O77.0 Labor and delivery complicated by meconium in amniotic fluid
CPT/HCPCS: 36415; 59025; 59409; 85014; 85018; 85027; 85460; 86592; 86850; 86900; 86901; A9270-GY; J0290; J2590; J2792; J7050; J7120; U0002